=== PATIENT | female | born 1960 | race Caucasian/White ===

== ENCOUNTER → 2020-11-04 | Outpatient (CLI) | payer MEDICARE ==
[2020-11-04 10:27] LABS: HEMOGLOBIN 14.6 gm/dl (12.3-15.3); RED BLOOD COUNT 4.55 M/UL (4.00-5.10); WHITE BLOOD COUNT 7.2 K/UL (4.5-11.0)
== END ==
LOC: LAB 09:58
PROVIDERS: Colon & Rectal Surgery
DX: R15.9 Full incontinence of feces (principal); R94.31 Abnormal electrocardiogram [ECG] [EKG]
CPT/HCPCS: 36415; 80048; 85027; 93005

== ENCOUNTER → 2021-01-01 | Outpatient (CLI) | payer MEDICARE | LOC: KOH-I 15:19 | DX: R51.9 Headache, unspecified (principal); L98.9 Disorder of the skin and subcutaneous tissue, unspecified | CPT/HCPCS: 70450 ==

== ENCOUNTER → 2021-04-21 | Outpatient (CLI) | payer MEDICARE | LOC: LAB 12:03 | DX: I10 Essential (primary) hypertension (principal) | CPT/HCPCS: 36415; 82565; 84520 ==

== ENCOUNTER → 2021-04-28 | Outpatient (CLI) | payer MEDICARE | LOC: CT 10:39 | DX: E11.43 Type 2 diabetes mellitus with diabetic autonomic (poly)neuropathy (principal); K31.84 Gastroparesis; R00.2 Palpitations; E11.9 Type 2 diabetes mellitus without complications; R63.4 Abnormal weight loss; R14.0 Abdominal distension (gaseous); R10.9 Unspecified abdominal pain; R07.89 Other chest pain; K59.09 Other constipation; R11.0 Nausea; K76.0 Fatty (change of) liver, not elsewhere classified | CPT/HCPCS: 71260; Q9967 ==

== ENCOUNTER → 2022-03-13 | Outpatient (CLI) | payer MEDICARE ==
[~2022-03-13] VITALS: Ht 160 cm; Wt 86.2 kg
== END ==
LOC: EROP 15:07
DX: U07.1 COVID-19 (principal); D84.9 Immunodeficiency, unspecified
CPT/HCPCS: M0222; Q0222

== ENCOUNTER → 2022-03-31 | Outpatient (CLI) | payer MEDICARE | LOC: KOH-I 08:48 | DX: I10 Essential (primary) hypertension (principal) | CPT/HCPCS: 71046 ==

== ENCOUNTER → 2022-05-18 | Outpatient (CLI) | payer MEDICARE | LOC: LAB 15:16 | DX: U07.1 COVID-19 (principal); B34.9 Viral infection, unspecified | CPT/HCPCS: U0002 ==